=== PATIENT | male | born 1955 | race Caucasian/White ===

== ENCOUNTER 2019-11-28 15:53 | Inpatient (IN) | payer OTHER ==
[~2019-11-28] VITALS: Ht 170.2 cm; Wt 77.6 kg
--- NOTE | ~2019-11-28 | O ---
[facility] [place] [address] OPERATIVE REPORT Name: ANNIKA LESTER Room #: 362-P ADM IN M.R.#: [id number] Admission: 11/28/19 Attend Phys: Yohannes Saxena Discharge: Date of : 55 Report #: [id number] THIS REPORT FOR: cc: LEANDRO - No family physician/PCP LEANDRO - No family physician/PCP Jefferson Kumar MD ~ CC: [facility] physician/PCP Yohannes Vázquez DATE OF SERVICE: 11/29/2019 PREOPERATIVE DIAGNOSIS: Incarcerated ventral hernia. POSTOPERATIVE DIAGNOSIS: Incarcerated ventral hernia. OPERATION: Laparoscopic converted to open repair of ventral hernia without mesh. SURGEON: Dr. Jefferson Kumar. ANESTHESIA: General. ESTIMATED BLOOD LOSS: Minimal. SPECIMEN: Hernia sac. DESCRIPTION OF PROCEDURE: After informed consent was obtained, the patient was brought to the operating room and placed supine. SCDs were placed and working, preoperative antibiotics were administered, general anesthesia was induced. The abdomen was prepped and draped in the usual sterile fashion. A 5-mm incision was made in the left lower quadrant. A 5-mm trocar was placed under direct vision. Pneumoperitoneum was established. Left-sided 8-mm trocar was placed. The abdomen was examined. He had multiple loops of small bowel and 2 hernia defects in the midline at the umbilicus. I tried to reduce this, but due to the size and the amount of small bowel that was incarcerated, I was not able to do this and I did not want to tear the bowel. Therefore, the laparoscope was removed. Midline incision was made from the umbilicus superiorly approximately 7 cm. Cautery dissection was made down through the subcutaneous tissue until the hernia sac was encountered. The hernia sac was dissected around and excised. There were 2 defects joined by a fascial bridge. This was incised. The fold defect measured approximately 6 cm. Small bowel was adherent to the hernia sac and the small bowel was released from its adhesions to the hernia sac. There were small serosal disruptions in the small bowel and these were reapproximated [facility] [address] [place] [address] OPERATIVE REPORT Name: ANNIKA LESTER Room #: 362-P [facility] IN ..#: [id number] Admission: 11/28/19 Attend Phys: Yohannes Saxena Discharge: Date of : 55 Report #: [id number] with 3-0 silk in an interrupted fashion. The fascial edges were then cleaned off. I reapproximated the fascia with a running #1 looped PDS. The skin was then closed with swathi. Sterile dressings were applied. COMPLICATIONS: None. DISPOSITION: The patient was taken to recovery in satisfactory condition. By: 1730 1807 Jefferson Kumar MD /nt
[~2019-11-28 15:53] MED LIST: CIPROFLOXACIN500 M1 PO; FLOMAX PO; RAPAFLO8 MG PO; UROXATRAL PO
[2019-11-28 15:54] VITALS: BP 165/103
[2019-11-28 16:30] LABS: ABSOLUTE NEUTROPHILS 13.1 thou/uL (1.4-8.2); BASOPHILS 0.1 % (0.0-2.0); EOSINOPHILS 0.6 % (0.0-3.0); HEMATOCRIT 48.5 % (42.0-52.0); MCH 29.7 pg (26.0-34.0); MCHC 32.9 g/dL (28.0-37.0); MCV 90.2 fL (80.0-100.0); MONOCYTES 5.8 % (1.0-8.0); PLATELET COUNT 220 thou/uL (150-400); POLYS 86.5 % (36.0-66.0); RBC 5.37 mil/uL (4.50-6.00); RDW 13.7 % (10.5-14.5); WBC 15.1 thou/uL (4.0-11.0)
[2019-11-28 16:37] LABS: CALCIUM 9.6 mg/dL (8.5-10.1); CREATININE 1.1 mg/dL (0.7-1.3); POTASSIUM 4.1 mmol/L (3.5-5.1)
[2019-11-28 16:43] LABS: ALBUMIN 3.7 g/dL (3.4-5.0); TOTAL BILIRUBIN 1.4 mg/dL (<0.1-1.0)
[2019-11-28 18:42] VITALS: BP 165/101
--- NOTE | 2019-11-28 18:47 | NUR ---
FIRST ATTEMPT TO CALL REPORT AT 1848
--- NOTE | 2019-11-28 18:57 | NUR ---
SECOND ATTEMPT TO CALL REPORT [id number]
--- NOTE | 2019-11-28 19:02 | NUR ---
REPORT GIVEN TO 3W RN
[2019-11-28 19:05] VITALS: BP 165/101
[2019-11-28 19:45] VITALS: BP 178/97
[2019-11-28] MEDS ORDERED: GARLIC1 EACH PO (20:10)
[2019-11-28] MEDS ORDERED: ASA81BEC PO (20:10)
[2019-11-28] MEDS ORDERED: LOPERAMIDE2 MG PO (20:11)
--- NOTE | 2019-11-28 23:56 | NUR ---
PT CAME TO ED HERNIA PAIN INCREASED TO THE POINT HE HAD BARREL REAMER WHILE DRIVING TO VOMIT, VOMITTING AT HOME. PT HAD HOPED TO HAVE HERNIA SURGERY IN JANUARY BUT PAIN BECAME TO SEVERE. ADMITTED SBO. SURGERY CONSULTED. ABD PROTRUDING FIRM, BS PRESENT. IVF INTACT. PRN MORPHINE PROVIDES COMFORT, NO N/V. PT REPORTS MULTIPLE JOBS, LIVES ALONE, HAS TWO CATS.
[2019-11-29] VITALS (9 sets, daily range): BP systolic 131–168; BP diastolic 80–92
[2019-11-29 03:53] LABS: HEMATOCRIT 47.9 % (42.0-52.0); MCH 30.3 pg (26.0-34.0); MCHC 33.5 g/dL (28.0-37.0); MCV 90.3 fL (80.0-100.0); RBC 5.3 mil/uL (4.50-6.00); RDW 13.7 % (10.5-14.5); WBC 14.6 thou/uL (4.0-11.0)
[2019-11-29 03:58] LABS: CALCIUM 8.5 mg/dL (8.5-10.1); CREATININE 0.9 mg/dL (0.7-1.3); MAGNESIUM 2.1 mg/dL (1.8-2.4); POTASSIUM 4.3 mmol/L (3.5-5.1)
--- NOTE | 2019-11-29 15:14 | NUR ---
INITIAL ASSESSMENT: SW reviewed chart and spoke with nursing and attending physician. Pt was admitted from home due to SBO. Surgery consulted today. Pt currently off the unit having surgery for hernia repair. Pt does not have health insurance. [employer] to follow up with pt. SW to follow up with pt at a later time and to assist as needed with discharge planning.
--- NOTE | 2019-11-29 16:18 | NUR ---
PT is A&OX3, PT is continuing NPO and IV fluid, pt's vs are stable, pt's ABD pain and N/V have improved, pt gets up ti bath room, pt was going to OR for procedure ( Laparoscopic ventral hernia repair with mesh ) at 1340pm.
--- NOTE | 2019-11-29 18:42 | NUR ---
PT came back from Surgery about 1800pm, pt had precedre: laparoscopic converted to open repair of ventral without mesh, pt is A&OX3, PT is in o2 2L/MIN/NC, PT'S VS and o2sat are stable, pt 's ABD surgical dressing is CDI, PT denies pain ,n/v at this time, pt starts drinking water now. RN will report to next shift to keep eye on pt.
--- NOTE | 2019-11-29 22:59 | NUR ---
PT RESTING IN BED, IVF INTACT. ABD ROUNDED, SURGICAL BANDAGES DRY INTACT. PT REPORTS NAUSEA AND PAIN AND PRN PROVIDED. PT VERBALIZED CONCERNS ABOUT HAVING FUTURE BM, URINATION, COUGHING AND MOVEMENT. ENCOURAGED TO BRACE WITH PILLOW AND CALL FOR ASSISTANCE. PT DECLINED HS SNACK.
[2019-11-30 02:06] VITALS: BP 173/97
--- NOTE | 2019-11-30 02:29 | NUR ---
PT AMBULATED IN [place], SITTING UP IN CHAIR. DISCUSSED HOW ONE OF HIS GIRLFRIENDS FROM [place].
[2019-11-30 06:01] VITALS: BP 141/93
[2019-11-30 07:01] VITALS: BP 185/98
[2019-11-30 08:03] VITALS: BP 185/98
[2019-11-30] MEDS ORDERED: FLOMAX0.4 MG PO (09:41)
[2019-11-30] MEDS ORDERED: COZAAR 50 MG TA50 M1 PO (09:41)
--- NOTE | 2019-11-30 14:28 | NUR ---
Sent to [facility] d/t complications with uretheral intubation requiring need for urology services. Left unit at 1330.
--- NOTE | 2019-12-03 15:08 | PATH ---
[facility] [address] [place] [address] PATHOLOGY RPT PROCEDURE Name: ANNIKA POSADA Teri Room #: 362-P [facility] IN M.R.#: [id number] Admission: 11/28/19 Date of : 55 Discharge: 11/30/19 Report #: [id number] Path Case #: [id number] [facility] Accession Number: [id number] . 01 Material submitted: . hernia - VENTRAL HERNIA SAC. Modifiers: ventral . 01 Clinical history: . Ventral hernia, incarcerated ventral hernia . 02 Diagnosis: Ventral hernia sac, repair: - Fibrovascular connective tissue with congestion compatible with hernia sac. (IUV:medical laboratory technicians; 12/03/2019) MBR 12/03/2019 1310 Local . 02 Electronically signed: . Jessica Benítez MD, Pathologist NPI- [id number] . 01 Gross description: . The specimen is received in formalin, labeled "Annika Posada, ventral hernia sac" and consists of a segment of pink-duval membranous tissue with attached yellow lobulated tissue measuring 13.0 x 9.8 x 3.5 cm. Sectioning reveals focal dense fibrous tissue and no mass lesions. Field Interviewer tissue is submitted in A1. (SDY; 12/02/2019) SYU/SYU 12/02/2019 1055 Local . 02 Pathologist provided ICD-10: K43.9 . 02 CPT . 115902 Specimen Comment: A courtesy copy of this report has been sent to [phone], [phone] Specimen Comment: [id number] Specimen Comment: Report sent to DR SMITH / DR MORATAYA Performed at: [address], [place] [id number] MD Hao Raygoza MD Phone: [phone] Performed at: [address] [id number] MD Jessica Benítez MD Phone: [phone]
== END 2019-11-30 16:21 | disposition short-term general hospital (02) | DRG 354 ==
LOC: ER 15:53 → EROBS 18:02 → 3W 18:02 → EROBS 18:11 → 3W 19:08
PROVIDERS: Emergency Medicine; ADMIT Hospitalist
PROC: 0WJF4ZZ Inspection of Abdominal Wall, Percutaneous Endoscopic Approach (ICD-10-PCS; principal; 2019-11-29)
PROC: 0WQF0ZZ Repair Abdominal Wall, Open Approach (ICD-10-PCS; principal; 2019-11-29)
DX: K43.6 Other and unspecified ventral hernia with obstruction, without gangrene (principal); K56.609 Unspecified intestinal obstruction, unspecified as to partial versus complete obstruction; I16.0 Hypertensive urgency; N40.1 Benign prostatic hyperplasia with lower urinary tract symptoms; R33.8 Other retention of urine
CPT/HCPCS: 10879; 50010; 50093; 50101; 50249; 50411; 50555; 51412; 53307; 54022; 54118; 56462; 56525; 56526; 56527; 56528; 62110; 62900; 70005

== ENCOUNTER 2019-12-01 11:48 | Inpatient (IN) | payer OTHER ==
[~2019-12-01] VITALS: Ht 170.2 cm; Wt 86.2 kg
[~2019-12-01 11:48] MED LIST changes: +ASA81BEC PO; +COZAAR 50 MG TA50 M1 PO; +FLOMAX0.4 MG PO; +GARLIC1 EACH PO; +LOPERAMIDE2 MG PO
--- NOTE | 2019-12-01 13:45 | NUR ---
PT ORIENTED TO ROOM AND UNIT. BED LOW AND LOCKED, SIDE RAILS UPX3, CALL LIGHT IN REACH. PT HR IS 110 AND DENIES CHEST PAIN. WILL OBTAIN EKG AND CONTINUE TO ASSESS.
[2019-12-01 17:12] LABS: HEMATOCRIT 45.1 % (42.0-52.0); HEMOGLOBIN 14.7 gm/dL (14.0-18.0); MCH 29.5 pg (26.0-34.0); MCHC 32.6 g/dL (28.0-37.0); MCV 90.7 fL (80.0-100.0); RBC 4.97 mil/uL (4.50-6.00); RDW 14.2 % (10.5-14.5); WBC 11.4 thou/uL (4.0-11.0)
[2019-12-01 17:24] LABS: CALCIUM 9.4 mg/dL (8.5-10.1); POTASSIUM 3.6 mmol/L (3.5-5.1)
[2019-12-01 19:15] VITALS: BP 117/79
[2019-12-01 23:43] VITALS: BP 149/101
[2019-12-02 03:48] VITALS: BP 145/101
--- NOTE | 2019-12-02 04:39 | NUR ---
ASSUMED PT CARE AROUND 1930. AXOX4. INDEPENDENT WITH ADLs WITH RICKS CATH. PT ABLE TO AMBULATE AND CARRY OUT ADLs WITH RICKS IN PLACE. ELEVATED BP REPORTED TO LUZ SCHRADER CARDIOLOGY TECHNICIAN FOR . NNO AT THIS TIME. CONT TO MONITOR. NO S/S ACUTE DISTRESS NOTED OR REPORTED AT THIS TIME. WILL CONT TO MONITOR FOR ANY CHANGES IN CONDTION.
[2019-12-02 07:09] VITALS: BP 146/102
--- NOTE | 2019-12-02 08:41 | EKG ---
[facility] [place] [address] ELECTROCARDIOGRAM REPORT Name: ANNIKA LESTER Room #: 450-P ADM IN M.R.#: [id number] Admission: 12/01/19 Attend Phys: Vipin Ellis MD Discharge: Date of : 55 Report #: [id number] THIS REPORT FOR: cc: LEANDRO - [place] family physician/PCP FAM - No family physician/PCP Albert Multani MD [facility] ~ THIS REPORT FOR: //name// [facility] Test Date: 2019-12-01 Test Time: 14:05:48 Pat Name: ANNIKA LESTER Department: Room: 450 P Gender: M Integration Lead: Richy BUSTILLOS : 1955 Requested By: Yohannes Saxena Order Number: [id number] MD: Albert Multani Measurements Intervals Gray Rate: 101 P: 41 NM: 158 QRS: 0 QRSD: 100 T: 22 QT: 336 QTc: 436 Interpretive Statements Sinus tachycardia RSR' in V1 or V2, right VCD No previous ECG available for comparison Electronically Signed On 12-02-2019 8:39:56 DIRECTOR OF SPORTS PERFORMANCE by Albert Multani [email or web address] <ELECTRONICALLY SIGNED> By: Albert Multani MD, [facility] 12/02/19 0839 1405 1405 Albert Multani MD, [facility] /EPI
[2019-12-02 09:36] VITALS: BP 146/102
--- NOTE | 2019-12-02 18:24 | NUR ---
Patient claimed he would drive home himself; agreed to call the surgeon in 2 weeks for Work Release; call Medical Record for his medication administration.
== END 2019-12-02 14:49 | disposition home or self-care (01) | DRG 726 ==
LOC: 4W 11:48
PROVIDERS: ADMIT Hospitalist
DX: N40.1 Benign prostatic hyperplasia with lower urinary tract symptoms (principal); Z79.899 Other long term (current) drug therapy; Z79.82 Long term (current) use of aspirin; R33.8 Other retention of urine; F17.210 Nicotine dependence, cigarettes, uncomplicated
CPT/HCPCS: 10047

== ENCOUNTER 2021-10-13 10:27 | Emergency (ER) | payer OTHER ==
[~2021-10-13] VITALS: Ht 170.2 cm; Wt 81.7 kg
[2021-10-13 11:05] VITALS: BP 139/77
== END 2021-10-13 12:52 | disposition home or self-care (01) ==
LOC: ER 10:27
DX: U07.1 COVID-19 (principal); Z79.899 Other long term (current) drug therapy